=== PATIENT | male | born 1985 | race Caucasian/White ===

== ENCOUNTER → 2023-05-30 09:57 | Outpatient (CLI) | payer SELFPAY ==
--- NOTE | 2023-05-30 10:01 | DI.RAD.S_ITS ---
PROCEDURE: XR HAND RT MIN 3V INDICATIONS: hand injury TECHNIQUE: 3 views of the hand(s) acquired. COMPARISON: None. FINDINGS: Bones: Mildly comminuted, displaced fracture involving the head of the right 5th metacarpal with intra-articular extension to the 5th metacarpophalangeal joint. No other fracture seen. Carpal bones are normally aligned. No suspicious bony lesions. Soft tissues: No suspicious soft tissue calcifications. IMPRESSION: Mildly comminuted intra-articular fracture involving the head of the right 5th metacarpal. Dictated by: Vladislav Cuellar M.D. on 05/30/2023 at 10:35 Approved by: Vladislav Cuellar M.D. on 05/30/2023 at 10:37
== END ==
PROVIDERS: Referring Provider Family Medicine; Visit Provider Family Medicine
DX: M79.641 Pain in right hand (principal); S62.396A Other fracture of fifth metacarpal bone, right hand, initial encounter for closed fracture
CPT/HCPCS: 73130

== ENCOUNTER → 2024-07-06 11:53 | Outpatient (CLI) | payer SELFPAY | PROVIDERS: Visit Provider Nurse Practitioner Family | DX: R05.1 Acute cough (principal); J35.8 Other chronic diseases of tonsils and adenoids | CPT/HCPCS: 87070 ==